=== PATIENT | male | born 1955 | race Caucasian/White ===

== ENCOUNTER 2024-06-28 00:38 | Emergency (ER) | payer OTHER, SELFPAY ==
[2024-06-28] VITALS (9 sets, daily range): BP systolic 99–144; BP diastolic 54–96; BMI 24.5
[2024-06-28 01:03] LABS: % Basophils 0.3 % (0-2); % Eosinophils 1.6 % (0-6); % Immature Granulocytes 0.3 % (0-0.5); % Lymphocytes 23.1 % (20.5-51.1); % Monocytes 11.9 % (1.7-9.3); % Neutrophils 62.8 % (42.2-75.2); Absolute Eosinophils 0.1 10^3/uL (0-0.7); Absolute Lymphocytes 1.6 10^3/uL (1.2-3.4); Absolute Monocytes 0.8 10^3/uL (0.1-0.6); Absolute Neutrophils 4.3 10^3/uL (1.4-6.5); Hematocrit 44.7 % (39.0-52.0); Hemoglobin 16.6 g/dL (13.0-18.0); Mean Corp Hgb Conc. 37.1 g/dL (33.0-37.0); Mean Corpuscular Hgb 34.7 pg (27.0-31.0); Mean Corpuscular Volume 93.5 fL (80.0-94.0); Nucleated Red Blood Cells % 0 % (-); Platelet Count 177 10^3/uL (130-400); Red Blood Cell Count 4.78 10^6/uL (4.70-6.10); Red Cell Dist. Width 12.1 % (11.5-14.5); White Blood Cell Count 6.8 10^3/uL (4.8-10.8)
[2024-06-28 01:19] LABS: COVID-19 Antigen Negative (Negative)
[2024-06-28 01:23] LABS: ALT (SGPT) 32 U/L (0-50); AST (SGOT) 46 U/L (17-59); Albumin 4.6 g/dl (3.5-5.0); Alkaline Phosphatase 95 U/L (38-126); Blood Urea Nitrogen 22 mg/dl (9-20); Calcium 9.3 mg/dl (8.4-10.2); Carbon Dioxide 20 mmol/L (22-30); Chloride 106 mmol/L (98-107); Estimated Creatinine Clearance 77 ml/min; Glucose 145 mg/dl (70-99); Potassium 3.7 mmol/L (3.5-5.1); Sodium 142 mmol/L (135-145); Total Protein 7.3 g/dl (6.3-8.2); eGFR > 60.00
[2024-06-28 01:34] LABS: Troponin I < 0.012 ng/ml
[2024-06-28 01:50] LABS: Alcohol 288 mg/dl
--- NOTE | 2024-06-28 03:16 | EDRN ---
Patient wandering around room, states he just wants to go home, asked how he would get there, states he would take an UBER, asked him to please wait for a doctor to see him first, patient moved closer to the nursing station to keep a better eye on
patient.
--- NOTE | 2024-06-28 03:30 | EDRN ---
Patient wandering around the room again, he just wants to go home he states, spoke with Dr. Rosado who is going to come see patient to try to talk to him, patient states he just wants to sleep in his own bed, [facility] is being offered for patient.
--- NOTE | 2024-06-28 03:46 | EDRN ---
Dr. Rosado at bedside talking with patient about talking with [facility], called [facility] as well
[2024-06-28] MEDS: ATIVAN 1 MG PO (03:55)
[2024-06-28] MEDS: NICODERM TRANSDERMAL 21 MG TRANSDERM (03:55)
--- NOTE | 2024-06-28 04:09 | EDRN ---
Patient on the phone with [facility], also provided him with a sandwich and drink of water as well as some A&D ointment for his lips
[2024-06-28] MEDS: PEPCID 20 MG IV (04:48)
[2024-06-28] MEDS: ZOFRAN 4 MG IV (04:48)
[2024-06-28] MEDS: ATIVAN 1 MG IV ×2 (04:48→06:35)
--- NOTE | 2024-06-28 04:58 | EDRN ---
Virgien started having vomiting episodes and shaking, informed Dr. raven mireless were ordered and given.
--- NOTE | 2024-06-28 05:56 | ED.GENMED ---
Addendum entered and electronically signed by Ezequiel Ley DO 06/28/24 10:03:
10 AM update patient sitting upright on room air no acute distress he tells me he wants to go home and go to [facility] tomorrow apparently he has made arrangements for this, will cancel admission sent home with some steroids and MDI a friend
is coming to get him
Addendum entered and electronically signed by Ezequiel Ley DO 06/28/24 08:23:
Update patient requiring oxygen, wheezing with rhonchi, heavy smoker high risk for DTs, COPD exacerbation at this point believe will be prudent to admit him to the medical [facility] here
Addendum entered and electronically signed by Ezequiel Ley DO 06/28/24 07:59:
Update, patient pending placement for rehab [facility] personnel is asked me to evaluate him for dual diagnosis detox and medical [place] patient evaluated [facility] feeling better after fluids and Ativan smells of tobacco is a heavy smoker heavy drinker
required oxygen through the night has a relatively quiet chest chest x-ray noted will place him on room air, see how he does in the meantime give him a neb
Original Note:
History of Present Illness
General
Chief Complaint: Breathing Problem
Source: patient and ambulance crew
Exam Limitations: none
Time Seen by Provider: 06/28/24 03:41
Nursing documentation reviewed up to this point in time: agreed with
History of Present Illness
History of Present Illness:
This is a 69-year-old gentleman who has history of hypertension, hyperlipidemia, COPD, right bundle branch block, CAD with history of PTCA. He also has history of alcohol abuse and had undergone inpatient alcohol rehab July 2023. He states he had
been sober for approximately 7 months but over the holidays began drinking again and has been drinking on a daily basis.
He presents to the ED via EMS with complaints of overall not feeling well. He admits to feeling significantly fatigued, admits to feeling depressed, overwhelmed but adamantly denies suicidal thoughts or plan.
Shortly after arrival to the ED he was contemplating leaving AGAINST MEDICAL ADVICE. He admits that he just wants to go home have a cigarette and have a drink. He also admits that he needs help with his alcohol abuse and after lengthy discussion
and reassurance he is agreeable to stay in the ED, agreeable to speak with [facility] intelligence operations specialist.
He admits to mild chronic cough as well as mild chronic shortness of breath. He denies increase in shortness of breath. He has not had a fever nor chills. He denies chest pain. He denies abdominal pain.
He has had intermittent nausea without vomiting. He admits to poor oral intake over the past few days and is currently hungry, asking for something to eat.
He admits that he is depressed over the passing of his mother 1 year ago, May 2023. He found his mother , lying on the floor.
Past History
Past History
ED Past Medical History: CAD, COPD, HTN, Hypercholesterolemia, Psychiatric (Depression, alcohol abuse) and Other (Right bundle branch block)
ED Past Surgical History: Cardiac (PTCA with stent)
Social History
Tobacco: Smoker
Alcohol: Chronic alcoholic
Drug: None
Personal:
Living: alone
Employment: Retired
Family History
Family History: Other (Noncontributory)
Phy Exam
Physical Exam
Physical Exam:
GENERAL: 69-year-old gentleman appears his stated age, awake and alert, intermittently tearful, mildly anxious but easily communicative. Cooperative. Mild odor of alcohol about the patient's breath. Mild odor of tobacco about the patient.
EYE: pupils equal and reactive. anicteric
NECK: Supple, nontender, no meningismus, no significant adenopathy.
ENT: posterior pharynx is clear, oral mucosa is minimally dry. Lips are mildly dry. TM clear b/l, nares patent.
CARDIAC: Regular rate and rhythm. no murmur.
LUNGS: no acute respiratory distress, minimally decreased breath sounds throughout with scant scattered expiratory wheezing that clears with cough.
ABDOMEN: Soft, nondistended, without focal tenderness, no r/g, no cvat. normoactive BS.
NEUROLOGICAL: Alert and oriented x3, no focal neuro deficits. Gait is steady.
SKIN: Warm and dry, normal color, skin intact. No rash. Sleeve tattoos to bilateral forearms.
MUSCULOSKELETAL: No C/C/E. peripheral pulses are full and equal b/l. No palpable tenderness.
PSYCH: Mildly anxious, tearful. Admits to significant sadness, depression but denies suicidal thoughts or plan. No hallucinations.
Scores
Heart Failure Risk
Heart Failure Risk Score: Not Applicable
Course
Orders/Labs/Results
Orders:
Orders
06/28/24 00:40
Cardiac Monitoring- Treatment ONCE
Chest [CR Chest - 2 Views ] Urgent
Comment:
Reason For Exam: short of breath
06/28/24 00:41
EKG [Electrocardiogram (*1)] Urgent
Reason for Study: Shortness of Breath
EKG- Treatment ONCE
06/28/24 00:56
Alcohol Urgent
CMP [Comprehensive Metabolic Panel] Urgent
COVID-19 Antigen Urgent
Source: Nasal Swab
Complete Blood Count/With Diff Urgent
Troponin I Urgent
Influenza A+B Rapid Molecular Urgent
HIEU Source: Nasal Swab
Specimen Description:
06/28/24 03:49
Lorazepam [Ativan] 1 mg PO NOW STA
Nicotine [Nicoderm Transdermal] 21 mg TRANSDERM NOW STA
06/28/24 03:58
Lorazepam [Ativan] 1 mg .ROUTE .STK-MED ONE
06/28/24 04:43
0.9% Sodium Chloride 1000 ml [Nss] 1,000 ml Mvi, Adult [Multivitamin] 10 ml Thiamine Injection 100 mg IV 1,000 mls/hr
06/28/24 04:44
Famotidine [Pepcid] 20 mg IV NOW STA
Lorazepam [Ativan] 1 mg IV NOW STA
Ondansetron Injectable [Zofran] 4 mg IV NOW STA
06/28/24 06:25
Lorazepam [Ativan] 1 mg IV NOW STA
06/28/24 07:00
0.9% Sodium Chloride 1000 ml [Nss] 1,000 ml Mvi, Adult [Multivitamin] 10 ml Thiamine Injection 100 mg IV 1,000 mls/hr
Abnormal Lab Results
06/28/24
00:56
MCH 34.7 H pg
(27.0-31.0)
MCHC 37.1 H g/dL
(33.0-37.0)
Absolute Monos (auto) 0.8 H 10^3/uL
(0.1-0.6)
Monocytes % 11.9 H %
(1.7-9.3)
Carbon Dioxide 20 L mmol/L
(22-30)
BUN 22 H mg/dl
(9-20)
Glucose 145 H mg/dl
(70-99)
06/28/24 00:56
06/28/24 00:56
Vital Signs
Initial and Last Documented VS:
Initial Vital Signs
Pulse Resp
69 16
06/28/24 00:42 06/28/24 00:42
Last Documented Vital Signs
Temp Pulse Resp BP Pulse Ox
98.0 F 63 18 123/62 97
06/28/24 00:43 06/28/24 05:15 06/28/24 05:15 06/28/24 05:00 06/28/24 05:15
MDM/Problems Addressed
Differential Diagnosis Includes:
Concern for alcohol use disorder exacerbating underlying medical conditions including CAD, COPD. Concern for alcoholic gastritis, hepatitis, pancreatitis.
Patient admits to significant depression and although denies suicidal thoughts or plan he is significantly tearful, anxious and overall mental stability is worrisome.
With reassurance he is agreeable to remain in the ED and to talk with our [facility] intelligence operations specialist. He readily agrees that he needs inpatient rehab.
EKG shows normal sinus rhythm with right bundle branch block. Patient has known history of right bundle branch block.
Chest x-ray shows mild hyperinflation otherwise unremarkable, no evidence of CHF nor infiltrate.
Labs are overall reassuring and unremarkable. Troponin is negative.
Alcohol level is elevated at 288.
Will give an oral dose of Ativan and plan to contact [facility].
Will continue to monitor for alcohol withdrawal symptoms.
Chronic conditions affecting care: HTN, CAD, COPD and Psychiatric illness
Acute Exacerbation and/or Progression of Chronic Illness: Psychiatric illness
*Radiology
Radiology exam reviewed: preliminary read by ED provider (Chest x-ray shows mild hyperinflation, clear lung har[place]. No evidence of infiltrate nor CHF.)
*Pulse Oximetry
Patient hypoxic: no
*EKG
Interpreted by ED Provider?: Yes
Comparison EKG: no comparison EKG present
Rate: normal
Rhythm: sinus and PVC's
[place]: normal axis
QRS Pattern: right bundle branch block
Ischemia: no ischemia
*Eyeglass Assembler Interpretation
Rate: normal
Interpretation: normal
Rhythm: sinus and PVC's
*Critical Care Note
Total Time (30-74mins, 75-104mins- exclusive of procedures): Not Applicable
Update Note
Update Note:
06:20
Patient has been evaluated by [facility] intelligence operations specialist.
Working on alcohol rehab facility acceptance and transfer.
Patient is currently resting comfortably after IV Ativan. IV fluids infusing.
ED Attending Note
-
Portions of this chart may have been created with voice recognition software.� Occasional wrong word or��sound alike� substitutions may have occurred due to the inherent limitations of voice recognition software.
Discharge Plan
Departure
Patient Disposition: Acute Rehab Facility
Date of Disposition: 06/28/24
Time of Disposition: 06:10
Discharge Problem:
Alcohol use disorder, COPD (chronic obstructive pulmonary disease), Acute alcoholic gastritis without hemorrhage
Interventions
Interventions:
*General Assessment Last Done: 06/28/24 00:43
*Neglect/Abuse Screening Last Done: 06/28/24 00:43
*ED COVID-19 Vaccine History Last Done: 06/28/24 00:43
ED- Cardiac Assessment Last Done: 06/28/24 01:04
ED- Pulmonary Assessment Last Done: 06/28/24 01:04
Discharge Date and Time
Print Language: DIVEHI
[2024-06-28] MEDS: MULTIVITAMIN 1011 MG IV (06:19)
[2024-06-28] MEDS: MULTIVITAMIN 1011 ML IV (06:19)
--- NOTE | 2024-06-28 07:45 | ED.GENMED ---
History of Present Illness
General
Chief Complaint: Breathing Problem
Time Seen by Provider: 06/28/24 03:41
Past History
Past History
ED Past Medical History: CAD, COPD, HTN, Hypercholesterolemia, Psychiatric (Depression, alcohol abuse) and Other (Right bundle branch block)
ED Past Surgical History: Cardiac (PTCA with stent)
Social History
Tobacco: Smoker
Alcohol: Chronic alcoholic
Drug: None
Personal:
Living: alone
Employment: Retired
Family History
Family History: Other (Noncontributory)
Course
Orders/Labs/Results
Orders:
Orders
06/28/24 00:40
Cardiac Monitoring- Treatment ONCE
Chest [CR Chest - 2 Views ] Urgent
Comment:
Reason For Exam: short of breath
06/28/24 00:41
EKG [Electrocardiogram (*1)] Urgent
Reason for Study: Shortness of Breath
EKG- Treatment ONCE
06/28/24 00:56
Alcohol Urgent
CMP [Comprehensive Metabolic Panel] Urgent
COVID-19 Antigen Urgent
Source: Nasal Swab
Complete Blood Count/With Diff Urgent
Troponin I Urgent
Influenza A+B Rapid Molecular Urgent
HIEU Source: Nasal Swab
Specimen Description:
06/28/24 03:49
Lorazepam [Ativan] 1 mg PO NOW STA
Nicotine [Nicoderm Transdermal] 21 mg TRANSDERM NOW STA
06/28/24 03:58
Lorazepam [Ativan] 1 mg .ROUTE .STK-MED ONE
06/28/24 04:43
0.9% Sodium Chloride 1000 ml [Nss] 1,000 ml Mvi, Adult [Multivitamin] 10 ml Thiamine Injection 100 mg IV 1,000 mls/hr
06/28/24 04:44
Famotidine [Pepcid] 20 mg IV NOW STA
Lorazepam [Ativan] 1 mg IV NOW STA
Ondansetron Injectable [Zofran] 4 mg IV NOW STA
06/28/24 06:25
Lorazepam [Ativan] 1 mg IV NOW STA
06/28/24 07:00
0.9% Sodium Chloride 1000 ml [Nss] 1,000 ml Mvi, Adult [Multivitamin] 10 ml Thiamine Injection 100 mg IV 1,000 mls/hr
Abnormal Lab Results
06/28/24
00:56
MCH 34.7 H pg
(27.0-31.0)
MCHC 37.1 H g/dL
(33.0-37.0)
Absolute Monos (auto) 0.8 H 10^3/uL
(0.1-0.6)
Monocytes % 11.9 H %
(1.7-9.3)
Carbon Dioxide 20 L mmol/L
(22-30)
BUN 22 H mg/dl
(9-20)
Glucose 145 H mg/dl
(70-99)
06/28/24 00:56
06/28/24 00:56
Vital Signs
Initial and Last Documented VS:
Initial Vital Signs
Pulse Resp
69 16
06/28/24 00:42 06/28/24 00:42
Last Documented Vital Signs
Temp Pulse Resp BP Pulse Ox
98.0 F 63 18 123/62 97
06/28/24 00:43 06/28/24 05:15 06/28/24 05:15 06/28/24 05:00 06/28/24 05:15
ED Attending Note
-
Portions of this chart may have been created with voice recognition software.� Occasional wrong word or��sound alike� substitutions may have occurred due to the inherent limitations of voice recognition software.
Discharge Plan
Departure
Patient Disposition: Acute Rehab Facility
Date of Disposition: 06/28/24
Time of Disposition: 06:10
Discharge Problem:
Alcohol use disorder, COPD (chronic obstructive pulmonary disease), Acute alcoholic gastritis without hemorrhage
Interventions
Interventions:
*General Assessment Last Done: 06/28/24 00:43
*Neglect/Abuse Screening Last Done: 06/28/24 00:43
*ED COVID-19 Vaccine History Last Done: 06/28/24 00:43
ED- Cardiac Assessment Last Done: 06/28/24 01:04
ED- Pulmonary Assessment Last Done: 06/28/24 01:04
Discharge Date and Time
Print Language: NEPALI
[2024-06-28] MEDS: DUONEB 3 ML INH (08:03)
[2024-06-28] MEDS: DECADRON 10 MG IV (08:41)
== END 2024-06-28 10:45 | disposition home or self-care (01) ==
LOC: EMR 00:38
PROVIDERS: Emergency Medicine; EMERGENCY PHYSICIAN Emergency Medicine; FAMILY PHYSICIAN Family Medicine
DX: F10.229 Alcohol dependence with intoxication, unspecified (principal); Y90.8 Blood alcohol level of 240 mg/100 ml or more; K29.20 Alcoholic gastritis without bleeding; J44.1 Chronic obstructive pulmonary disease with (acute) exacerbation; R53.83 Other fatigue; Z11.52 Encounter for screening for COVID-19; I45.10 Unspecified right bundle-branch block; I25.10 Atherosclerotic heart disease of native coronary artery without angina pectoris; I10 Essential (primary) hypertension; E78.00 Pure hypercholesterolemia, unspecified; F32.A Depression, unspecified; F17.210 Nicotine dependence, cigarettes, uncomplicated; Z95.5 Presence of coronary angioplasty implant and graft
CPT/HCPCS: 99284; 96365; 96375 ×4; 94640; 96376; 71046; 80053; 82077; 84484; 85025; 87502; 87811; 93005

== ENCOUNTER 2024-07-29 07:57 | Emergency (ER) | payer OTHER, SELFPAY ==
[2024-07-29] VITALS (9 sets, daily range): BP systolic 105–147; BP diastolic 51–103; BMI 23.7
--- NOTE | 2024-07-29 08:33 | ED.GENMED ---
History of Present Illness
General
Chief Complaint: Alcohol Problem
Time Seen by Provider: 07/29/24 07:58
History of Present Illness
History of Present Illness:
Patient presents to the emergency department requesting alcohol detox. He has a history of COPD, CAD as well as alcohol use disorder. Notes that he has been drinking heavily since the anniversary of his mother's in May. Endorses
drinking 2 L of vodka daily. States last night he was drinking and fell to the floor. There was no injury. He was unable to get up so he called 911. Denies pain anywhere at this time
Past History
Past History
ED Past Medical History: CAD, COPD, HTN, Hypercholesterolemia, Psychiatric (Depression, alcohol abuse) and Other (Right bundle branch block)
ED Past Surgical History: Cardiac (PTCA with stent)
Social History
Tobacco: Smoker
Alcohol: Chronic alcoholic
Drug: None
Personal:
Living: alone
Employment: Retired
Family History
Family History: Other (Noncontributory)
Phy Exam
Physical Exam
Physical Exam:
GENERAL APPEARANCE: disheveled
EYES lids/conjunctiva normal
EARS/NOSE/THROAT Mucous membranes moist, uvula midline without oral pharyngeal erythema, exudate or swelling
HEAD/NECK normocephalic atraumatic, neck is supple.
RESPIRATORY respiratory effort normal, speaks in full sentences, no accessory muscle use. Lungs clear to auscultation without rhonchi, wheezes, rales
CARDIAC Regular rate and rhythm, no edema.
ABDOMINAL Soft, ND/NT. No pulsatile masses on exam, rebound tenderness, Qureshi sign or pain over Mcburney's point.
MUSCLES/EXTREMITIES No abnormal range of motion, no swelling.
SKIN Warm, pink and dry. No rashes
NEUROLOGICAL Speech is clear and appropriate. Normal level of consciousness. 5/5 strength in all extremities.
PSYCH Normal mood and affect. Judgement/competence is appropriate
Scores
Withdrawal Assessment of Alcohol
Withdrawal Assessment Completed?: Not applicable
Course
Orders/Labs/Results
Orders:
Orders
07/29/24 08:25
Electrocardiogram (*1) Urgent
Reason for Study: Other
Other Reason for Exam: weakness
07/29/24 08:27
Alcohol Urgent
CBC/With Diff [Complete Blood Count/With Diff] Urgent
Comprehensive Metabolic Panel Urgent
07/29/24 08:44
Lorazepam [Ativan] 1 mg PO NOW STA
07/29/24 08:45
Lorazepam [Ativan] 1 mg .ROUTE .STK-MED ONE
07/29/24 09:57
Drug Screen, Urine [Urine Drug Abuse Screen] Urgent
Date Specimen was Collected: 07/29/24
Time Specimen was Collected: 09:45
Fentanyl, Urine Urgent
07/29/24 10:51
Lorazepam [Ativan] 2 mg .ROUTE .STK-MED ONE
07/29/24 10:56
Lorazepam [Ativan] 1 mg IV NOW STA
Abnormal Lab Results
07/29/24 07/29/24
08:27 09:57
RBC 4.68 L 10^6/uL
(4.70-6.10)
MCV 96.8 H fL
(80.0-94.0)
MCH 34.4 H pg
(27.0-31.0)
Absolute Monos (auto) 0.7 H 10^3/uL
(0.1-0.6)
Monocytes % 14.0 H %
(1.7-9.3)
Sodium 147 H mmol/L
(135-145)
BUN 25 H mg/dl
(9-20)
AST 66 H U/L
(17-59)
ALT 52 H U/L
(0-50)
U Benzodiazepines Scrn Positive H
(Negative)
07/29/24 08:27
07/29/24 08:27
Vital Signs
Initial and Last Documented VS:
Initial Vital Signs
Temp Pulse Resp BP Pulse Ox
98 F 69 18 140/79 96
07/29/24 08:01 07/29/24 08:01 07/29/24 08:01 07/29/24 08:01 07/29/24 08:01
Last Documented Vital Signs
Temp Pulse Resp BP Pulse Ox
98 F 72 20 120/69 91
07/29/24 08:01 07/29/24 09:30 07/29/24 09:30 07/29/24 12:00 07/29/24 12:15
*Critical Care Note
Total Time (30-74mins, 75-104mins- exclusive of procedures): Not Applicable
Update Note
Update Note:
patient complaining of subjective feeling of withdrawal. No tachycardia, hypertension, tremors. He appears comfortable. Will give PO ativan
ED Attending Note
ED Attending Note
ED Attending Note:
Patient presents requesting alcohol detox. He had a nonsyncopal fall overnight with general weakness suspect in the setting of alcohol use. There is no sign of injury. Will check basic labs and have worker from [facility] discussed patient's rehab
options with him.
Patient seen by [facility]
accepted to [facility] for alcohol detox
-
Portions of this chart may have been created with voice recognition software.� Occasional wrong word or��sound alike� substitutions may have occurred due to the inherent limitations of voice recognition software.
Discharge Plan
Departure
Patient Disposition: Acute Rehab Facility
Date of Disposition: 07/29/24
Time of Disposition: 14:23
Discharge Problem:
Alcohol use disorder, Alcohol intoxication
Prescriptions:
No Action
methylprednisolone [Medrol (Nader)] 4 mg tablets,dose pack
See Rx Instructions .ROUTE .COMPLEX Qty: 21 0RF
Rx Instructions:
for 6 days
albuterol sulfate 90 mcg/actuation HFA aerosol inhaler
2 inh inhalation Q6H PRN (Reason: shortness of breath or wheezing) Qty: 8.5 2RF
Referrals:
Quinton Montes MD [Family Provider] -
Interventions
Interventions:
*Risk Screen - Suicide Last Done: 07/29/24 08:06
*General Assessment Last Done: 07/29/24 08:17
*Neglect/Abuse Screening Last Done: 07/29/24 08:06
*ED- Fall Risk Assessment Last Done: 07/29/24 08:17
*ED COVID-19 Vaccine History Last Done: 07/29/24 08:17
ED- Neurological Assessment Last Done: 07/29/24 08:19
ED-Psychological Assessment Last Done: 07/29/24 08:20
Discharge Date and Time
Print Language: SRI LANKAN
[2024-07-29 08:39] LABS: % Basophils 0.4 % (0-2); % Eosinophils 1.7 % (0-6); % Immature Granulocytes 0.2 % (0-0.5); % Lymphocytes 28.2 % (20.5-51.1); % Neutrophils 55.5 % (42.2-75.2); Absolute Eosinophils 0.1 10^3/uL (0-0.7); Absolute Lymphocytes 1.4 10^3/uL (1.2-3.4); Absolute Monocytes 0.7 10^3/uL (0.1-0.6); Absolute Neutrophils 2.7 10^3/uL (1.4-6.5); Hematocrit 45.3 % (39.0-52.0); Hemoglobin 16.1 g/dL (13.0-18.0); Mean Corp Hgb Conc. 35.5 g/dL (33.0-37.0); Mean Corpuscular Hgb 34.4 pg (27.0-31.0); Mean Corpuscular Volume 96.8 fL (80.0-94.0); Mean Platelet Volume 9.1 fL (7.4-10.4); Nucleated Red Blood Cells % 0 % (-); Platelet Count 152 10^3/uL (130-400); Red Blood Cell Count 4.68 10^6/uL (4.70-6.10); Red Cell Dist. Width 12.9 % (11.5-14.5); White Blood Cell Count 4.8 10^3/uL (4.8-10.8)
[2024-07-29] MEDS: ATIVAN 1 MG PO (08:46)
[2024-07-29 08:52] LABS: ALT (SGPT) 52 U/L (0-50); AST (SGOT) 66 U/L (17-59); Albumin 4.7 g/dl (3.5-5.0); Alkaline Phosphatase 111 U/L (38-126); Blood Urea Nitrogen 25 mg/dl (9-20); Calcium 9.6 mg/dl (8.4-10.2); Carbon Dioxide 23 mmol/L (22-30); Chloride 107 mmol/L (98-107); Estimated Creatinine Clearance 68 ml/min; Glucose 90 mg/dl (70-99); Potassium 4.1 mmol/L (3.5-5.1); Sodium 147 mmol/L (135-145); Total Protein 7.6 g/dl (6.3-8.2); eGFR > 60.00
[2024-07-29 09:55] LABS: Alcohol 382 mg/dl
[2024-07-29 10:30] LABS: Amphetamines Negative (Negative); Barbiturates Negative (Negative); Benzodiazepines Positive (Negative); Buprenorphine Negative (Negative); Cocaine Negative (Negative); Marijuana Negative (Negative); Methadone Negative (Negative); Methamphetamines Negative (Negative); Opiates Negative (Negative); Phencyclidine Negative (Negative); Tricyclic Antidepressants Negative (Negative)
[2024-07-29] MEDS: ATIVAN 1 MG IV ×2 (10:56→16:44)
[2024-07-29 11:31] LABS: Fentanyl, Urine Negative (Negative)
== END 2024-07-29 20:09 ==
LOC: EMR 07:57
PROVIDERS: EMERGENCY PHYSICIAN Emergency Medicine; FAMILY PHYSICIAN Family Medicine
DX: F10.129 Alcohol abuse with intoxication, unspecified (principal); Y90.8 Blood alcohol level of 240 mg/100 ml or more; E78.00 Pure hypercholesterolemia, unspecified; I10 Essential (primary) hypertension; I25.10 Atherosclerotic heart disease of native coronary artery without angina pectoris; J44.9 Chronic obstructive pulmonary disease, unspecified; F17.200 Nicotine dependence, unspecified, uncomplicated; W18.39XA Other fall on same level, initial encounter
CPT/HCPCS: 96374; 96376; 99285; 80053; 80306; 80307; 82077; 85025; 93005